=== PATIENT | female | born 1995 | race Hispanic/Latino ===

== ENCOUNTER 2024-05-20 12:19 | Emergency (ER) | payer SELFPAY ==
[~2024-05-20] VITALS: Ht 149.9 cm; Wt 48.1 kg
--- NOTE | 2024-05-20 12:35 | ERN ---
General Chief Complaint: Abdominal Pain Stated Complaint: RUQ PAIN Time Seen by MD: 12:21 History of Present Illness Initial Comments 29-year-old female presents to the ED for evaluation of worsening right upper quadrant pain onset 3 days ago. Patient reports she has pain when she takes a deep breath. Allergies: Coded Allergies: No Known Allergies (Unverified Allergy, Unknown, 05/20/24) Past Medical History Past Medical History: No Pertinent History Past Surgical History: Female( History) LMP: May 09, 2024 ROS Dictation Constitutional: Negative for fever,chills, and weight loss Eyes: Negative for injury, pain,redness, and discharge ENT: Negative for injury,pain or swelling Cardiovascular: Negative for chest pain, palpitations, and edema Respiratory: Negative for shortness of breath, cough, and wheezing, Abdomen/GI: Positive for right upper quadrant abdominal pain, nausea, vomiting, diarrhea, and constipation Back: Negative for injury and pain : Negative for injury, bleeding and discharge MS/Extremity: Negative for injury and deformity Skin: Negative for rash, and discoloration Neuro: Negative for headache, weakness, numbness, tingling, and seizure Psych: Negative for suicide ideation, homicidal ideation, and hallucinations Physical Exam Physical Exam Dictation General: awake, alert, NAD Head/Face: Normocephalic, atraumatic Eyes: PERRL, EOMI, vision at baseline ENT: oral cavity clear, TMs clear, no signs of infection Neck: Trachea midline, supple, no nuchal rigidity Cardiovascular: RRR, normal S1/S2, No MRGs, no JVD Respiratory: CTAB, no respiratory distress, No rales or wheezes Abdomen: Soft, right upper quadrant moderate tenderness, non-distended, normal bowel sounds, no guarding or rebound. Skin: Warm, dry, normal turgor, no rash MS/Extremity: Pulses equal, no cyanosis, neurovascular intact, FROM Neuro: COAx4, GCS 15, strength 5/5, CN 2-12 intact, normal cerebellar exam, normal gait, Psych: Normal behavior, mood, and affect normal Results Laboratory and Microbiology Lab and Micro Result Laboratory Tests Test 05/20/24 12:47 05/20/24 15:36 White Blood Count 9.7 K/uL (4.8-10.8) Red Blood Count 4.06 MIL/uL (4.00-5.50) Hemoglobin 11.8 g/dL (12.0-16.0) L Hematocrit 35.8 % (36-48) L Mean Corpuscular Volume 88.2 fL (79-99) Mean Corpuscular Hemoglobin 29.1 pg (27.0-33.0) Mean Corpuscular Hemoglobin Concent 33.0 g/dL (32.0-36.0) Red Cell Distribution Width 12.8 % (11.0-15.5) Platelet Count 268 K/uL (130-400) Mean Platelet Volume 10.3 fL (7.5-10.5) Immature Granulocyte % (Auto) 0.2 % (0-1) Neutrophils (%) (Auto) 74.3 % (40.0-77.0) Lymphocytes (%) (Auto) 17.5 % (21.0-51.0) L Monocytes (%) (Auto) 5.0 % (3.0-13.0) Eosinophils (%) (Auto) 2.4 % (0.0-8.0) Basophils (%) (Auto) 0.6 % (0.0-5.0) Neutrophils # (Auto) 7.2 K/uL (1.8-7.7) Lymphocytes # (Auto) 1.7 K/uL (1.0-4.8) Monocytes # (Auto) 0.5 K/uL (0.1-1.0) Eosinophils # (Auto) 0.23 K/uL (0.00-0.70) Basophils # (Auto) 0.06 K/uL (0.00-0.20) Absolute Immature Granulocyte (auto 0.02 K/uL (0-1) Nucleated Red Blood Cells 0.0 % (0.0-0.19) Sodium Level 141 mmol/L (136-145) Potassium Level 3.7 mmol/L (3.5-5.1) Chloride Level 105 mmol/L (101-111) Carbon Dioxide Level 31 mmol/L (21-32) Blood Urea Nitrogen 13 mg/dL (7-18) Creatinine 0.7 mg/dL (0.5-1.0) Glomerular Filtration Rate Calc 121 mL/min (>90) Random Glucose 95 mg/dL (70-105) Total Calcium 9.0 mg/dL (8.5-10.1) Total Bilirubin 0.5 mg/dL (0.2-1.0) Aspartate Amino Transf (AST/SGOT) 14 U/L (10-37) Alanine Aminotransferase (ALT/SGPT) 23 U/L (12-78) Alkaline Phosphatase 108 U/L (50-136) Total Creatine Kinase 77 U/L (21-232) Total Protein 7.5 g/dL (6.0-8.3) Albumin 3.7 g/dL (3.5-5.0) Lipase 27 U/L (16-77) Urine Color YELLOW (YELLOW) Urine Appearance CLEAR (CLEAR) Urine pH 8.0 (5.0-8.0) Urine Specific [place] 1.027 (1.001-1.031) Urine Protein 10 mg/dL (NEGATIVE) H Urine Glucose (UA) NEGATIVE mg/dL (NEGATIVE) Urine Ketones NEGATIVE mg/dL (NEGATIVE) Urine Occult Blood NEGATIVE (NEGATIVE) Urine Nitrate NEGATIVE (NEGATIVE) Urine Bilirubin NEGATIVE mg/dL (NEGATIVE) Urine Urobilinogen 4.0 mg/dL (0.2-1.0) H Urine Leukocyte Esterase NEGATIVE Rhoda/uL Labs Reviewed?: Yes EKG/XRAY/US/CT/MRI EKG Comment EKG 05/20/2024 time 12:48 p.m. ventricular rate 74, VA 145, QRS D 73. No STEMI MDM MDM: Differential diagnosis: RUQ abdominal pain, biliary colic, cholelithiasis Previous outside records reviewed: Old ER visits. Need for hospitalization: Patient does not meet criteria for hospitalization. Need for emergency major/minor surgery: No Patient's prior external medical records from other ER visits were reviewed by me as indicated. Prior testing and results from previous visits were reviewed. Prior tests were taken into account with medical decision making and resource utilization, independent historian/historians were used to obtain complete medical history. I independently interpreted the test that were performed, results were reviewed by me and considered findings on radiology if ordered. Medical management and examination interpretation discussions were had by me with other qualified healthcare professionals as indicated for the patient's care. ED Course Orders Procedure Category Date Status Time Cbc With Differential LAB 05/20/24 Complete 12:23 Comprehensive LAB 05/20/24 Complete Metabolic Panel 12:23 ,Urine Test LAB 05/20/24 In Process 12:23 Urinalysis Profile LAB 05/20/24 In Process 12:23 Us Abdominal Ruq\Ltd US 05/20/24 Resulted 12:23 12 Lead Ekg Tracing- EKG 05/20/24 Complete Technical 12:23 Lactated Ringers PHA 05/20/24 Complete 1000ml (Lactated 12:30 Creatine Kinase, Total LAB 05/20/24 Complete 12: Lipase LAB 05/20/24 Complete 12:23 Current Medications Medications (Trade) Dose Ordered Sig/Cindy Route PRN Reason Start Time Stop Time Status Last Admin Dose Admin Lactated Ringer's 1,000 ml @ 0 mls/hr ONCE ONCE IV 05/20/24 12:30 05/20/24 12:31 DC 05/20/24 16:00 Vital Signs Date Time Temp Pulse Resp B/P (MAP) Pulse Ox O2 Delivery O2 Flow Rate FiO2 05/20/24 12: 97.5 84 16 109/58 98 Room Air 0 DX & DISP Disposition: Discharge Departure Impression: Primary Impression: Biliary colic Condition: Stable Additional Instructions: FOLLOW-UP WITH PRIMARY CARE PROVIDER IN 1 TO 2 DAYS. TAKE MEDICATIONS DIRECTED HERE IN THE EMERGENCY ROOM. OKAY TO CONTINUE HOME MEDICATIONS UNLESS OTHERWISE DISCUSSED DURING YOUR VISIT IN THE EMERGENCY ROOM TODAY. RETURN TO YOUR NEAREST EMERGENCY ROOM IF SYMPTOMS WORSEN OR IF THERE IS NO IMPROVEMENT. CALL 911 IF YOU NEED IMMEDIATE ASSISTANCE. TAKE TYLENOL [id number] NEEDED AND IF NO CONTRAINDICATIONS ARE PRESENT. INCREASE ORAL HYDRATION. A WOUND CULTURE OR URINE CULTURE WAS ORDERED HERE IN THE EMERGENCY ROOM DEPARTMENT PLEASE FOLLOW-UP WITH PRIMARY CARE PROVIDER AND ADVISE THEM TO GET REPEAT PORTS FROM OUR FACILITY. IF YOU HAD ANY THOMAS WRAP/SPLINTS THAT WERE APPLIED HERE, PLEASE DO NOT REMOVE THEM UNTIL YOU SEE YOUR PRIMARY CARE OR SPECIALTY. Referrals: Referrals: NIKI VENTURA MD, OYETUNDE O MD Time of Disposition: 16:01 I have reviewed, & agreed with my scribe's, documentation. (Entered by Maria D Quiroz, acting as a scribe for Dr. Horn) I personally scribed for ISIS HORN MD ([email or web address]) on 05/20/24 at 12:35. Electronically submitted by Maria D Quiroz ([email or web address]). ISIS HORN MD May 20, 2024 12:35
--- NOTE | 2024-05-20 12:50 | EKG ---
[facility] Test Date: 2024-05-20 Test Time: 12:48:12 Pat Name: EDDI BUSTOS Department: ED Room: Gender: F Pulmonary Function Technician: 08 : 1995 Requested By: ISIS GARAY Order Number: [id number] Reading MD: Ty Bragg Measurements Intervals [place] Rate: 74 P: 56 IN: 145 QRS: 56 QRSD: 73 T: 44 QT: 360 QTc: 400 Interpretive Statements Sinus rhythm No previous ECG available for comparison Electronically Signed On 05-20-2024 21:10:46 MASTER CONTROL TECHNICIAN by Ty Bragg Please click the below link to view image of tracing.
[2024-05-20 12:57] LABS: BASOPHILS # (AUTO) 0.06 K/uL (0.00-0.20); BASOPHILS % (AUTO) 0.6 % (0.0-5.0); EOSINOPHILS # (AUTO) 0.23 K/uL (0.00-0.70); EOSINOPHILS % (AUTO) 2.4 % (0.0-8.0); HEMATOCRIT 35.8 % (36-48); IMMATURE GRANULOCYTE ABSOLUTE 0.02 K/uL (0-1); LYMPHOCYTES # (AUTO) 1.7 K/uL (1.0-4.8); LYMPHOCYTES % (AUTO) 17.5 % (21.0-51.0); MEAN CORPUSCULAR HEMOGLOBIN 29.1 pg (27.0-33.0); MEAN CORPUSCULAR VOLUME 88.2 fL (79-99); MONOCYTES # (AUTO) 0.5 K/uL (0.1-1.0); NEUTROPHILS # (AUTO) 7.2 K/uL (1.8-7.7); NEUTROPHILS % (AUTO) 74.3 % (40.0-77.0); PLATELET COUNT (AUTO) 268 K/uL (130-400); RED BLOOD CELL COUNT(AUTO) 4.06 MIL/uL (4.00-5.50); RED CELL DISTRIBUTION WIDTH 12.8 % (11.0-15.5); WHITE BLOOD COUNT (AUTO) 9.7 K/uL (4.8-10.8)
[2024-05-20 13:10] LABS: CREATININE 0.7 mg/dL (0.5-1.0); POTASSIUM 3.7 mmol/L (3.5-5.1)
[2024-05-20 13:14] LABS: ALBUMIN 3.7 g/dL (3.5-5.0); BILIRUBIN,TOTAL 0.5 mg/dL (0.2-1.0); TOTAL PROTEIN, SERUM 7.5 g/dL (6.0-8.3)
--- NOTE | 2024-05-20 13:56 | HMCIMG ---
US ABDOMINAL RUQ\E\LTD HISTORY: Abdominal pain COMPARISON: None TECHNIQUE: Right upper quadrant abdominal ultrasound study was performed. FINDINGS: Liver measured 13.1 cm. The visualized portion of the pancreas is within normal limits. Small gallstones are seen in the gallbladder. Common duct measures 3 mm. No evidence of gallbladder wall thickening is seen. Right kidney measures 10 x 3.9 x 4.4 cm. No hydronephrosis is seen of the right kidney. IMPRESSION: 1. Small gallstones. No ductal dilatation is seen. 2. No hydronephrosis is seen.
[2024-05-20 15:57] LABS: APPEARANCE,URINE CLEAR (CLEAR); BILIRUBIN,URINE NEGATIVE (NEGATIVE); COLOR,URINE YELLOW (YELLOW); GLUCOSE, URINE (UA) NEGATIVE (NEGATIVE); KETONES,URINE NEGATIVE (NEGATIVE); LEUKOCYTE ESTERASE ,URINE NEGATIVE Leu/uL (NEGATIVE); NITRATE,URINE NEGATIVE (NEGATIVE); OCCULT BLOOD,URINE NEGATIVE (NEGATIVE); PROTEIN,URINE 10 mg/dL (NEGATIVE)
[2024-05-20 16:00] LABS: ADD UA MICROSCOPIC YES
[2024-05-20] MEDS: LACTATED RINGERS 1000ML 1,000 ML IV ONE (16:00)
[2024-05-20 16:03] LABS: BACTERIA,URINE RARE /HPF (None Seen); MUCUS,URINE FEW LPF (None Seen); RBC,URINE 0-1 /HPF (0-1); SQUAMOUS EPITHELIAL CELL,UR RARE /HPF (0-2)
[2024-05-20 16:19] LABS: HCG,QUALITATIVE URINE NEGATIVE (NEGATIVE)
--- NOTE | 2024-05-20 16:24 | NUR ---
ready for discharge after iv fluids
[2024-05-20 16:29] VITALS: BP 106/62; PULSE 84; RESP 16; TEMP 97.9; O2SAT 98
== END 2024-05-20 16:38 | disposition home or self-care (01) ==
LOC: EDH 12:19
DX: K80.70 Calculus of gallbladder and bile duct without cholecystitis without obstruction (principal)
CPT/HCPCS: 99284; 96360; 76705; 82550; 80053; 83690; 85025; 81001; 81025; 36415; 93005; J7120